=== PATIENT | male | born 1950 | race Two or more races ===

== ENCOUNTER 2018-04-17 06:52 | Day surgery (SDC) | payer OTHER ==
[~2018-04-17 06:52] MED LIST: ASA81 MG PO; AVALIDE 300-121 EACH PO; LIPITOR20 MG PO; RECTICARE30 GM RECTAL; TOPROL XL50 M1 PO; ULTRACET PO
== END 2018-04-17 10:44 | disposition home or self-care (01) ==
LOC: AMB-ENDOS 06:52
DX: K57.30 Diverticulosis of large intestine without perforation or abscess without bleeding (principal)